=== PATIENT | male | born 1950 | race Caucasian/White ===

== ENCOUNTER 2016-12-24 08:26 | Inpatient (IN) | payer BC ==
[~2016-12-24] VITALS: Ht 190.5 cm; Wt 98.7 kg
[2016-12-24] MEDS ORDERED: ASPIRIN 81 MG CHEW PO STA (08:41)
[2016-12-24] MEDS ORDERED: IBUP-1459 PO (08:45)
--- NOTE | 2016-12-24 09:00 | DIAGNOSTIC IMAGING REPORT ---
CHEST ONE VIEW PORTABLE CLINICAL HISTORY: CHEST PAIN dyspnea COMPARISON STUDY: None FINDINGS: Parenchymal infiltrate left base. Mild prominence pulmonary vasculature. Heart top limits normal in terms of size. Right hemidiaphragm is smooth. IMPRESSION: Parenchymal infiltrate left base possibly combined with a small left effusion. Electronically signed by: Huy Humphrey M.D. 12/24/2016 8:58 AM Dictated Date/Time: 12/24/2016 8:58 AM
[2016-12-24 09:04] LABS: BASO % 0.2 %; BASO ABS # 0.02 K/uL (0-0.2); COMPLETE YES; HEMATOCRIT 40.1 % (42-52); IG% 0.2 %; LYMPH % 10.1 %; LYMPH ABS # 1.03 K/uL (1.2-3.4); MEAN CELL VOLUME 89.3 fL (80-100); MEAN CORPUSCULAR HEMOGLOBIN 31.8 pg (25-34); MEAN CORPUSCULAR HGB CONC 35.7 g/dl (32-36); MEAN PLATELET VOLUME 9.9 fL (7.4-10.4); MONO % 10.1 %; NEUT % 78.4 %; PLATELET COUNT 216 K/uL (130-400); RED BLOOD COUNT 4.49 M/uL (4.7-6.1)
--- NOTE | 2016-12-24 09:05 | EMERGENCY ROOM VISIT NOTE ---
History Report prepared by Elsi: Debbie Casanova Under the Supervision of: Maxwell LucasO. First contact with patient: 08:34 Chief Complaint: CHEST PAIN Stated Complaint: CP FROM LT SIDE WHEN BREATHING History of Present Illness The patient is a 66 year old male who presents to the Emergency Room with complaints of persistent left sided chest pain that began last evening. He currently rates his discomfort as a 4/10 in severity. The patient states that yesterday he started with the left sided chest pain, and states that it would increase with breathing. He states that his pain increased last evening and could not lay flat to sleep, stating that he slept upright all night. The patient states that he took ibuprofen last evening. He states that when he woke and his pain has lessened. The patient states that since his pain was still there this morning and he started with nausea, vomiting, and diarrhea, he consulted his PCP's office. He states that the nurse instructed him to come to the emergency department for further work up. The patient states that recently he traveled to [place], but denies any history of PEs or DVTs. He denies any personal history of MIs, but states that his father from an [place]. The patient notes a cough and increased phlegm production. He denies any fever or abdominal pain. The patient notes a history of [place] Palsy. He denies any tobacco use but states that he uses alcohol daily. Source of History: patient Onset: last evening Position: chest (left) Symptom Intensity: 4/10 Timing: other (persistent) Associated Symptoms: + cough, + diarrhea, + nausea, + vomiting, No abdominal pain, No fevers Review of Systems See HPI for pertinent positives & negatives. A total of 10 systems reviewed and were otherwise negative. 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 Family History Heart disease Social History Smokeless Tobacco Use: Yes Alcohol Use: occasionally Marital Status: single Occupation Status: employed Current/Historical Medications Scheduled Ibuprofen (Motrin), 400 MG PO TID Allergies Coded Allergies: NUTS (Unverified Allergy, Unknown, anaphylaxis, 12/24/16) Physical Exam Vital Signs Date Time Temp Pulse Resp B/P Pulse Ox O2 Delivery O2 Flow Rate FiO2 12/24/16 10:35 69 18 128/84 97 Room Air 12/24/16 10:18 36.7 64 21 123/75 94 Room Air 12/24/16 09:25 72 18 128/74 94 Room Air 12/24/16 08:39 81 12/24/16 08:35 36.6 82 18 150/90 95 Room Air 12/24/16 08:35 94 Room Air 12/24/16 08:35 94 Room Air Physical Exam GENERAL: Patient is awake, alert, and in no acute distress. Patient is resting comfortably and showing no signs of anxiety EYES: The conjunctivae are clear. The pupils are round and reactive. EARS, NOSE, MOUTH AND THROAT: The nose is without any evidence of any deformity. Mucous membranes are moist tongue is midline NECK: The neck is nontender and supple. RESPIRATORY: Diminished in left base. Rales in left base. No tachypnea or respiratory distress noted. CARDIOVASCULAR: Regular rate and rhythm noted there no murmurs rubs or gallops normal S1 normal S2 GASTROINTESTINAL: The abdomen is soft. Bowel sounds are present in all quadrants. Abdomen is nontender MUSCULOSKELETAL/EXTREMITIES: There is no evidence of gross deformity full range of motion is noted in the hips and shoulders SKIN: There is no obvious evidence of any rash. There are no petechiae, pallor or cyanosis noted. NEUROLOGIC: Patient is awake alert and oriented x3 strength is symmetric patellar reflexes are 2+ bilaterally. 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 Medical Decision & Procedures ER Provider Diagnostic Interpretation: Radiology results as stated below per my review and radiologist interpretation: CHEST ONE VIEW PORTABLE CLINICAL HISTORY: CHEST PAIN dyspnea COMPARISON STUDY: None FINDINGS: Parenchymal infiltrate left base. Mild prominence pulmonary vasculature. Heart top limits normal in terms of size. Right hemidiaphragm is smooth. IMPRESSION: Parenchymal infiltrate left base possibly combined with a small left effusion. Electronically signed by: Huy Humphrey M.D. 12/24/2016 8:58 AM Dictated Date/Time: 12/24/2016 8:58 AM CHEST CTA for PULMONARY ARTERIES CT DOSE: 340.79 mGy.cm HISTORY: Chest pain dyspnea TECHNIQUE: Multiaxial CT images of the chest were performed following the intravenous administration of contrast to evaluate the pulmonary arteries. Maximal intensity projection images were also obtained. COMPARISON STUDY: None. FINDINGS: Study is positive for pulmonary embolus involving the third order vessel of the left lower lobe. All remaining pulmonary vasculature enhances peripherally. There is no evidence for major central pulmonary embolus. Thoracic aorta is normal in course and caliber. There is a small left effusion. There are infiltrative changes left lung base. There is no significant hilar or mediastinal adenopathy. The may be minimal early parenchymal infiltrate right base. IMPRESSION: 1. Study is positive for a small pulmonary embolus left lung base. 2. Left and to a lesser extent right basilar parenchymal infiltrative change with a small left effusion. Electronically signed by: Huy Humphrey M.D. 12/24/2016 9:49 AM Dictated Date/Time: 12/24/2016 9:46 AM Laboratory Results 12/24/16 08:54 Red Blood Count 4.49, Mean Corpuscular Volume 89.3, Mean Corpuscular Hemoglobin 31.8, Mean Corpuscular Hemoglobin Concent 35.7, Mean Platelet Volume 9.9, Neutrophils (%) (Auto) 78.4, Lymphocytes (%) (Auto) 10.1, Monocytes (%) (Auto) 10.1, Eosinophils (%) (Auto) 1.0, Basophils (%) (Auto) 0.2, Neutrophils # (Auto ) 8.00, Lymphocytes # (Auto) 1.03, Monocytes # (Auto) 1.03, Eosinophils # (Auto ) 0.10, Basophils # (Auto) 0.02 12/24/16 08:54 Test 12/24/16 08:54 12/24/16 08:57 12/24/16 10:15 White Blood Count 10.20 K/uL (4.8-10.8) Red Blood Count 4.49 M/uL (4.7-6.1) Hemoglobin 14.3 g/dL (14.0-18.0) Hematocrit 40.1 % (42-52) Mean Corpuscular Volume 89.3 fL (80-100) Mean Corpuscular Hemoglobin 31.8 pg (25-34) Mean Corpuscular Hemoglobin Concent 35.7 g/dl (32-36) Platelet Count 216 K/uL (130-400) Mean Platelet Volume 9.9 fL (7.4-10.4) Neutrophils (%) (Auto) 78.4 % Lymphocytes (%) (Auto) 10.1 % Monocytes (%) (Auto) 10.1 % Eosinophils (%) (Auto) 1.0 % Basophils (%) (Auto) 0.2 % Neutrophils # (Auto) 8.00 K/uL (1.4-6.5) Lymphocytes # (Auto) 1.03 K/uL (1.2-3.4) Monocytes # (Auto) 1.03 K/uL (0.11-0.59) Eosinophils # (Auto) 0.10 K/uL (0-0.5) Basophils # (Auto) 0.02 K/uL (0-0.2) RDW Standard Deviation 43.4 fL (36.4-46.3) RDW Coefficient of Variation 13.2 % (11.5-14.5) Immature Granulocyte % (Auto) 0.2 % Immature Granulocyte # (Auto) 0.02 K/uL (0.00-0.02) Prothrombin Time 10.5 SECONDS (9.0-12.0) Prothromb Time International Ratio 1.0 (0.9-1.1) Activated Partial Thromboplast Time 28.2 SECONDS (21.0-31.0) Partial Thromboplastin Ratio 1.1 Anion Gap 11.0 mmol/L (3-11) Est Creatinine Clear Calc Drug Dose 86.8 ml/min Estimated GFR () 90.5 Estimated GFR (Non- 78.1 BUN/Creatinine Ratio 22.8 (10-20) Calcium Level 8.8 mg/dl (8.5-10.1) Total Bilirubin 0.7 mg/dl (0.2-1) Direct Bilirubin 0.2 mg/dl (0-0.2) Aspartate Amino Transf (AST/SGOT) 17 U/L (15-37) Alanine Aminotransferase (ALT/SGPT) 29 U/L (12-78) Alkaline Phosphatase 71 U/L (45-117) Total Creatine Kinase 70 U/L (39-308) Creatine Kinase MB 0.5 ng/ml (0.5-3.6) Creatine Kinase MB Ratio 0.7 (0-3.0) Total Protein 7.1 gm/dl (6.4-8.2) Albumin 3.4 gm/dl (3.4-5.0) Lipase 144 U/L (73-393) Hepatitis C Antibody Screen NEG (NEG) Bedside D-Dimer > 450 ng/mlFEU (0-450) Bedside Troponin I 0.000 ng/ml (0-0.045) Medications Administered Medications (Trade) Dose Ordered Sig/Sushma Route Start Time Stop Time Status Last Admin Dose Admin Aspirin (Aspirin Chew) 324 mg NOW STAT PO 12/24/16 08:41 12/24/16 08:42 DC 12/24/16 09:03 324 MG ECG Indication: chest pain Rate (beats per minute): 75 Rhythm: normal sinus Findings: no acute ischemic change, no ectopy, other (no acute ST segment abnormalities) Comparison ECG Date: no prior available ED Course 0837: The patient was evaluated in room B4B. A complete history and physical examination were performed. 0841: Ordered Aspirin 324 mg PO. 0957: I discussed the patients case with KEVIN Perez. He is going to evaluate the patient for further treatment. 0958: Ordered Heparin Sodium Dextrose 1 ea NA. 1010: I reevaluated the patient and he is resting comfortably. I discussed the exam findings with him and I discussed the treatment plan. He verbalized complete understanding and agreement. He is going to be evaluated for further treatment. 1015: Ordered Heparin Sodium/Dextrose 1 ea NA. Medical Decision Differential diagnosis: Etiologies such as cardiac ischemia, aortic dissection, pulmonary embolism, pneumonia, pneumothorax, musculoskeletal, infections, pericarditis, myocarditis , esophageal rupture, gastrointestinal, as well as others were entertained. Nursing notes reviewed. The patient is a 66-year-old male who presented to the emergency department for an evaluation of left-sided chest pain. The patient had pleuritic chest pain. He did not have significant tachycardia or hypoxia but had a recent history of a flight last week which was prolonged with a long layover. The patient did not have any physical exam findings consistent with DVT. D-dimer is positive. The patient received aspirin in the emergency department. He will also started on heparin after CT revealed signs of left-sided pulmonary embolus. He also had signs of possible pulmonary infiltrate. Blood cultures were obtained. I discussed the patient's laboratory and radiographic studies with him. I also discussed his case with the on-call [facility] hospitalist. At this time they 've recommended holding antibiotics. It is more likely that this represents thromboembolic disease. The patient does not have complaints of cough and does not have a fever. He may require antibiotics but I will defer this until after he is been evaluated by the [facility] team. The patient was reevaluated multiple times. Consults Time Called: [phone] Consulting Physician: JOSEFINA Perez Returned Call: [phone] I discussed the patients case with JOSEFINA Perez. He is going to evaluate the patient for further treatment. Impression Primary Impression: Pulmonary embolism on left Additional Impression: Pleuritic chest pain Critical Care I have personally spent greater than 45 minutes of critical care time in the direct management of this patient. This includes bedside care, interpretation of diagnostic studies, and testing, discussion with consultants, patient, and family members, and other required patient management activities. This 45 minutes is in excess of all separately billable procedures. Scribe Attestation The scribe's documentation has been prepared under my direction and personally reviewed by me in its entirety. I confirm that the note above accurately reflects all work, treatment, procedures, and medical decision making performed by me. Departure Information Dispostion Being Evaluated By Hospitalist Referrals Johnathan Wadsworth M.D. (PCP) Problem Qualifiers
[2016-12-24 09:11] LABS: PARTIAL THROMBOPLASTIN RATIO 1.1; PROTHROMBIN TIME (PATIENT) 10.5 SECONDS (9.0-12.0)
[2016-12-24 09:21] LABS: BUN/CREATININE RATIO 22.8 (10-20); CALCIUM 8.8 mg/dl (8.5-10.1); POTASSIUM 3.8 mmol/L (3.5-5.1)
[2016-12-24 09:26] LABS: CKMB/CK RATIO 0.7 (0-3.0)
[2016-12-24] MEDS ORDERED: OPTIRAY 320 IV PRN (09:30)
--- NOTE | 2016-12-24 09:50 | DIAGNOSTIC IMAGING REPORT ---
CHEST CTA for PULMONARY ARTERIES CT DOSE: 340.79 mGy.cm HISTORY: Chest pain dyspnea TECHNIQUE: Multiaxial CT images of the chest were performed following the intravenous administration of contrast to evaluate the pulmonary arteries. Maximal intensity projection images were also obtained. COMPARISON STUDY: None. FINDINGS: Study is positive for pulmonary embolus involving the third order vessel of the left lower lobe. All remaining pulmonary vasculature enhances peripherally. There is no evidence for major central pulmonary embolus. Thoracic aorta is normal in course and caliber. There is a small left effusion. There are infiltrative changes left lung base. There is no significant hilar or mediastinal adenopathy. The may be minimal early parenchymal infiltrate right base. IMPRESSION: 1. Study is positive for a small pulmonary embolus left lung base. 2. Left and to a lesser extent right basilar parenchymal infiltrative change with a small left effusion. Electronically signed by: Huy Humphrey M.D. 12/24/2016 9:49 AM Dictated Date/Time: 12/24/2016 9:46 AM
[2016-12-24 10:18] VITALS: BP 123/75; PULSE 64; TEMP 36.7; O2SAT 94; Ht 190.5 cm; Wt 98.7 kg
[2016-12-24] MEDS ORDERED: ACETAMINOPHEN 325 MG TAB PO PRN (10:30)
[2016-12-24] MEDS ORDERED: ONDANSETRON INJ 2 MG/ML 2 ML VIAL IV PRN (10:30)
[2016-12-24] MEDS ORDERED: NITROGLYCERIN 0.4 MG SL PER TAB CHARGE SL PRN (10:30)
[2016-12-24] MEDS ORDERED: MAGNESIUM HYDROXIDE SUSP 30 ML UDC PO PRN (10:30)
[2016-12-24] MEDS ORDERED: ALUMINUM/MAGNESIUM/SIMETH (MAALOX MAX) 30 ML UDC PO PRN (10:30)
[2016-12-24] MEDS ORDERED: POLYETHYLENE (MIRALAX) 17 GM PACK PO PRN (10:30)
[2016-12-24] MEDS ORDERED: HEPARIN SOD 5000 UNIT/0.5 ML CARP ONE (10:48)
[2016-12-24] MEDS ORDERED: HEPARIN 25000 UNIT/500 ML D5W ONE (10:48)
--- NOTE | 2016-12-24 10:59 | History and Physical ---
History & Physical Date & Time of Service: Dec 24, 2016 at 10:35 Chief Complaint: Cp From Lt Side When Breathing Primary Care Physician: Johnathan Wadsworth M.D. History of Present Illness Source: patient Patient is a pleasant 66 y/o male, with no significant PMHx, who presented to the ED because of left sided CP w/ associated nausea and vomiting. Left sided CP begin on 12/23 evening. CP is worsened with breathing and lying flat. He took Ibuprofen last evening with minimal relief in symptoms. This morning, patient started with nausea and vomiting. Patient also admits to a chronic cough with minimal phlegm production. Denies any discoloration of production. The patient recently travelled from [place]. 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 He denies any history of PE/DVT. He denies any cardiac history. Patient states he use to take ASA daily as a preventive measures, but had to stop due to frequent nose bleeds. Patient denies any fever, chills, sweats, lightheadedness, dizziness, vision changes, palpitations, edema, SOB, wheezing, abdominal pain, diarrhea, urinary symptoms, melena, numbness/tingling, weakness , muscle/joint pain, anxiety/depression, active bleeding, or new skin discoloration/changes. Past Medical/Surgical History Medical Problems: 1. Muhammad's palsy Family History Heart disease Social History Smoking Status: Never Smoker Alcohol Use: heavy (daily ) Marital Status: single Occupational Status: employed Allergies Coded Allergies: NUTS (Unverified Allergy, Unknown, anaphylaxis, 12/24/16) Home Medications Scheduled Ibuprofen (Motrin), 400 MG PO TID Physical Exam Vital Signs Date Time Temp Pulse Resp B/P Pulse Ox O2 Delivery O2 Flow Rate FiO2 12/24/16 09:25 72 18 128/74 94 Room Air 12/24/16 08:39 81 12/24/16 08:35 36.6 82 18 150/90 95 Room Air 12/24/16 08:35 94 Room Air 12/24/16 08:35 94 Room Air General Appearance: WD/WN, no apparent distress Head: normocephalic, atraumatic Eyes: PERRL ENT: hearing grossly normal Neck: supple Respiratory/Chest: lungs clear, no respiratory distress, no accessory muscle use Cardiovascular: regular rate, rhythm, normal peripheral pulses Abdomen/GI: normal bowel sounds, non tender, soft Back: normal inspection Extremities/Musculoskelatal: no calf tenderness, no pedal edema Neurologic/Psych: alert, normal reflexes, oriented x 3, + facial droop (chronic , hx of muhammad's palsy ) Skin: normal color, warm/dry, no rash Diagnostics Laboratory Results Results Past 24 Hours Test 12/24/16 08:54 12/24/16 08:57 12/24/16 10:15 Range/Units White Blood Count 10.20 4.8-10.8 K/uL Red Blood Count 4.49 4.7-6.1 M/uL Hemoglobin 14.3 14.0-18.0 g/dL Hematocrit 40.1 42-52 % Mean Corpuscular Volume 89.3 80-100 fL Mean Corpuscular Hemoglobin 31.8 25-34 pg Mean Corpuscular Hemoglobin Concent 35.7 32-36 g/dl Platelet Count 216 130-400 K/uL Mean Platelet Volume 9.9 7.4-10.4 fL Neutrophils (%) (Auto) 78.4 % Lymphocytes (%) (Auto) 10.1 % Monocytes (%) (Auto) 10.1 % Eosinophils (%) (Auto) 1.0 % Basophils (%) (Auto) 0.2 % Neutrophils # (Auto) 8.00 1.4-6.5 K/uL Lymphocytes # (Auto) 1.03 1.2-3.4 K/uL Monocytes # (Auto) 1.03 0.11-0.59 K/uL Eosinophils # (Auto) 0.10 0-0.5 K/uL Basophils # (Auto) 0.02 0-0.2 K/uL RDW Standard Deviation 43.4 36.4-46.3 fL RDW Coefficient of Variation 13.2 11.5-14.5 % Immature Granulocyte % (Auto) 0.2 % Immature Granulocyte # (Auto) 0.02 0.00-0.02 K/uL Prothrombin Time 10.5 9.0-12.0 SECONDS Prothromb Time International Ratio 1.0 0.9-1.1 Activated Partial Thromboplast Time 28.2 21.0-31.0 SECONDS Partial Thromboplastin Ratio 1.1 Sodium Level 139 136-145 mmol/L Potassium Level 3.8 3.5-5.1 mmol/L Chloride Level 106 98-107 mmol/L Carbon Dioxide Level 22 21-32 mmol/L Anion Gap 11.0 3-11 mmol/L Blood Urea Nitrogen 23 7-18 mg/dl Creatinine 1.00 0.60-1.40 mg/dl Est Creatinine Clear Calc Drug Dose 86.8 ml/min Estimated GFR () 90.5 Estimated GFR (Non- 78.1 BUN/Creatinine Ratio 22.8 10-20 Random Glucose 155 70-99 mg/dl Calcium Level 8.8 8.5-10.1 mg/dl Total Bilirubin 0.7 0.2-1 mg/dl Direct Bilirubin 0.2 0-0.2 mg/dl Aspartate Amino Transf (AST/SGOT) 17 15-37 U/L Alanine Aminotransferase (ALT/SGPT) 29 12-78 U/L Alkaline Phosphatase 71 45-117 U/L Total Creatine Kinase 70 39-308 U/L Creatine Kinase MB 0.5 0.5-3.6 ng/ml Creatine Kinase MB Ratio 0.7 0-3.0 Total Protein 7.1 6.4-8.2 gm/dl Albumin 3.4 3.4-5.0 gm/dl Lipase 144 73-393 U/L Bedside D-Dimer > 450 0-450 ng/mlFEU Bedside Troponin I 0.000 0-0.045 ng/ml Microbiology Results 12/24/16 Blood Culture, Received Pending 12/24/16 Blood Culture, Received Pending Diagnostic Radiology CHEST ONE VIEW PORTABLE CLINICAL HISTORY: CHEST PAIN dyspnea COMPARISON STUDY: None FINDINGS: Parenchymal infiltrate left base. Mild prominence pulmonary vasculature. Heart top limits normal in terms of size. Right hemidiaphragm is smooth. IMPRESSION: Parenchymal infiltrate left base possibly combined with a small left effusion. Electronically signed by: Huy Humphrey M.D. 12/24/2016 8:58 AM Dictated Date/Time: 12/24/2016 8:58 AM The status of this report is Signed. Draft = Not yet reviewed or approved by Radiologist. Signed = Reviewed and approved by Radiologist. CHEST CTA for PULMONARY ARTERIES CT DOSE: 340.79 mGy.cm HISTORY: Chest pain dyspnea TECHNIQUE: Multiaxial CT images of the chest were performed following the intravenous administration of contrast to evaluate the pulmonary arteries. Maximal intensity projection images were also obtained. COMPARISON STUDY: None. FINDINGS: Study is positive for pulmonary embolus involving the third order vessel of the left lower lobe. All remaining pulmonary vasculature enhances peripherally. There is no evidence for major central pulmonary embolus. Thoracic aorta is normal in course and caliber. There is a small left effusion. There are infiltrative changes left lung base. There is no significant hilar or mediastinal adenopathy. The may be minimal early parenchymal infiltrate right base. IMPRESSION: 1. Study is positive for a small pulmonary embolus left lung base. 2. Left and to a lesser extent right basilar parenchymal infiltrative change with a small left effusion. Electronically signed by: Huy Humphrey M.D. 12/24/2016 9:49 AM Dictated Date/Time: 12/24/2016 9:46 AM The status of this report is Signed. Draft = Not yet reviewed or approved by Radiologist. Signed = Reviewed and approved by Radiologist. EKG KIT KNIGHT ID:[id number] 24-DEC-2016 08:35:55 [facility] Normal sinus rhythm Possible Left atrial enlargement Nonspecific ST and T wave abnormality Abnormal ECG No previous ECGs available 25mm/s 10mm/mV 150Hz 8.0 SP2 12SL 241 HUSSEIN: 9 Referred by: Unconfirmed Vent. rate 75 BPM ND interval 180 ms QRS duration 102 ms QT/QTc 360/402 ms P-R-T axes 47 26 64 1950 (66 yr) Male Room: Loc:15 [employer] Compensation Magistrate:KAPIL Galeas ind: Impression Assessment and Plan 66 y/o male, with no significant PMHx, who presented to the ED because of left sided CP w/ associated nausea and vomiting. Left lung base PE: - Admit tele for cardiac monitoring - Trend cardiac enzymes - IV standard dose Heparin w/ bolus--> if remains hemodynamically stable, will discuss about oral anticoagulation tomorrow - Bilateral lower extremity U/S - Hypercoagulable workup pending - Follow CBC and PRP ?PNA w/ infiltrates on CXR/CTA: - No abx at this time--> no s/s of infections; no fever/chills, worsening cough (pt has chronic cough), no WBC. Continue to monitor for s/s of infection/need for abx treatment - Blood cultures pending GI Prophylaxis: Maalox PRN, IV Zofran PRN, Colace and/or Milk of Mag PRN DVT prophylaxis: Heparin Code Status: LEVEL I, FULL Level of Care Telemetry Resuscitation Status FULL RESUSCITATION VTE Prophylaxis VTE Risk Assessment Done? Y/N: Yes Risk Level: High Given or contraindicated: Unfractionated heparin SQ
[2016-12-24] MEDS ORDERED: HEPARIN 25,000 UNIT/500ML D5W 500 ML IV PRN (11:30)
[2016-12-24] MEDS ORDERED: HEPARIN IV BOLUS 5,000 UNIT in SYRINGE 0 ML IV ONE (11:30)
[2016-12-24 11:55] VITALS: O2SAT 94
[2016-12-24] MEDS ORDERED: WARFARIN SOD 5 MG TAB PO ONE (12:45)
[2016-12-24 15:22] VITALS: BP 130/79; PULSE 71; TEMP 36.9; O2SAT 92
[2016-12-24] MEDS ORDERED: WARFARIN SOD 5 MG TAB PO SCH (16:00)
[2016-12-24] MEDS ORDERED: PNEUMOCOCCAL POLYSACCHARIDES 25 MCG/0.5 ML VIAL/SYR IM. ONE (16:00)
[2016-12-24] MEDS ORDERED: PNEUMOCOCCAL ADMINISTRATION CHARGE ONE (16:00)
[2016-12-24 17:57] LABS: PARTIAL THROMBOPLASTIN RATIO 2.9
[2016-12-24 19:28] VITALS: BP 112/74; PULSE 65; TEMP 36.7; O2SAT 95
[2016-12-24] MEDS: ENOXAPARIN 100 MG/1ML SYR SQ SCH (19:44)
--- NOTE | 2016-12-24 21:47 | DIAGNOSTIC IMAGING REPORT ---
BILATERAL LOWER EXTREMITY VENOUS DOPPLER CLINICAL HISTORY: Chest pain. Pulmonary emboli. COMPARISON STUDY: No previous studies for comparison. TECHNIQUE: Sonography of the deep venous system of the bilateral lower extremities was performed. Compression and augmentation were evaluated. FINDINGS: The bilateral common femoral, superficial femoral and popliteal veins were compressible. Augmentation was normal. Flow was shown within the deep calf vessels. IMPRESSION: No evidence of deep venous thrombus within the bilateral lower extremities. Electronically signed by: Satnam Sanchez M.D. 12/24/2016 9:46 PM Dictated Date/Time: 12/24/2016 9:45 PM
[2016-12-24 23:41] VITALS: BP 107/68; PULSE 61; TEMP 36.7; O2SAT 94
[2016-12-25 03:47] VITALS: BP 112/70; PULSE 62; TEMP 36.6; O2SAT 95
[2016-12-25 05:40] LABS: HEMATOCRIT 39.1 % (42-52); MEAN CELL VOLUME 87.9 fL (80-100); MEAN CORPUSCULAR HEMOGLOBIN 31.2 pg (25-34); MEAN CORPUSCULAR HGB CONC 35.5 g/dl (32-36); MEAN PLATELET VOLUME 9.5 fL (7.4-10.4); PLATELET COUNT 223 K/uL (130-400); RED BLOOD COUNT 4.45 M/uL (4.7-6.1)
[2016-12-25 05:52] LABS: PARTIAL THROMBOPLASTIN RATIO 1.3; PROTHROMBIN TIME (PATIENT) 10.7 SECONDS (9.0-12.0)
[2016-12-25 06:20] LABS: BUN/CREATININE RATIO 17.6 (10-20); CALCIUM 8.7 mg/dl (8.5-10.1); CREATININE 0.85 mg/dl (0.60-1.40); POTASSIUM 3.8 mmol/L (3.5-5.1)
[2016-12-25 08:08] VITALS: BP 116/73; PULSE 60; TEMP 36.4; O2SAT 91
[2016-12-25] MEDS: ENOXAPARIN 100 MG/1ML SYR SQ SCH (08:22)
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
[2016-12-25] MEDS ORDERED: CMD5 PO (09:23)
[2016-12-25] MEDS ORDERED: LVNIS100 SQ (09:23)
--- NOTE | 2016-12-25 09:33 | Discharge Instructions ---
Discharge Instructions Date of Service Dec 25, 2016. Admission Reason for Admission: Pulmonary Embolism On Left Discharge Discharge Diagnosis / Problem: Pulmonary embolism Discharge Goals Goal(s): Decrease discomfort, Learn about illness, Diagnostic testing, Therapeutic intervention, Prevent Disease Progression Activity Recommendations Activity Limitations: resume your previous activity Instructions / Follow-Up Instructions / Follow-Up New medications: 1. Lovenox 100 mg injections twice per day. You will need at least 5 days of injections to overlap with Coumadin. Please continue these injections until further instructed by your PCP. FIRST INJECTION WILL BE TONIGHT (12/24) 2. Coumadin 5 mg by mouth once daily. BEGIN MEDICATION TODAY (12/24) You may resume all other regular home medications as prescribed to you You have been given a script to get your INR (blood level to determine how thin your blood is) check on 12/26. Results will be forwarded to your PCP. Please follow their further Lovenox and Coumadin instructions. [facility] Information: [facility] [address] [place] [address] Please follow-up with your PCP within 5-7 days Please follow-up/keep all of your subspecialty appointments Medication Instructions: * Warfarin is a medicine prescribed to prevent blood clots * Warfarin will thin your blood and help prevent new clots * Take your medications exactly as directed * Never skip a dose. Never take a double dose. If you miss a dose, take it as soon as you remember * It is important for your doctor to monitor your prothrombin time (PT). This is a lab test * Keep your appointment for lab tests Risk of Adverse Drug Reactions and Interactions: * Warfarin increases your risk of bleeding * The food you eat and other medications you take can affect how Warfarin works in your body * Ask your doctor about daily aspirin therapy * It is very important to talk with your doctor about all of the other medicines, antibiotics, vitamins or herbal products that you are taking * All of your medication must be approved by your doctor, including new medicines, as well as medicines you have taken before you started taking Warfarin Diet: * In order for Warfarin to work properly, it is important to keep your intake of Vitamin K as consistent as possible * You should avoid any sudden change in Vitamin K intake * Report any significant changes in your diet or weight to your doctor Call your Doctor if you experience any of the following: * Swelling or Pain in your leg * Sudden, continuous pain deep in a muscle * Pain that worsens when you are active or when you stand still for a long time * Chest Pain * Sudden Shortness of Breath * Rapid or pounding heart beat * Fainting * Dizziness * Cough with blood or bloody sputum * Sweating more than normal * Bruises * heavy or uncontrolled bleeding * Blood in your urine, stool or vomit * Black or tarry stools Caring for Your Self at Home: * Avoid sitting, standing or lying down for long periods without moving your legs and feet * When traveling by car, stop to get out and move around at least once every 3 hours * On long airplane, train or bus rides, get up and move around when possible * If you can't get up, wiggle your toes and tighten your calves to keep your blood moving Follow Up: * It is important for you to keep your follow up appointments with your medical provider. Current Hospital Diet Patient's current hospital diet: Regular Diet Discharge Diet Recommended Diet: Regular Diet Procedures Procedures Performed: 1. Chest x-ray 2. Chest CTA 3. Bilateral lower extremity venous ultrasound Pending Studies Studies pending at discharge: yes List of pending studies: 1. Hypercoagulable workup 2. Blood cultures Laboratory Results Last 24 Hours Test 12/24/16 10:15 12/24/16 17:00 12/24/16 17:30 12/25/16 00:54 Creatine Kinase MB Ratio Activated Partial Thromboplast Time 75.3 SECONDS Partial Thromboplastin Ratio 2.9 Creatine Kinase MB < 0.5 ng/ml < 0.5 ng/ml Troponin I < 0.015 ng/ml < 0.015 ng/ml Test 12/25/16 01:00 12/25/16 05:14 Creatine Kinase MB Ratio White Blood Count 7.00 K/uL Red Blood Count 4.45 M/uL Hemoglobin 13.9 g/dL Hematocrit 39.1 % Mean Corpuscular Volume 87.9 fL Mean Corpuscular Hemoglobin 31.2 pg Mean Corpuscular Hemoglobin Concent 35.5 g/dl RDW Standard Deviation 42.3 fL RDW Coefficient of Variation 13.1 % Platelet Count 223 K/uL Mean Platelet Volume 9.5 fL Prothrombin Time 10.7 SECONDS Prothromb Time International Ratio 1.0 Activated Partial Thromboplast Time 32.6 SECONDS Partial Thromboplastin Ratio 1.3 Sodium Level 141 mmol/L Potassium Level 3.8 mmol/L Chloride Level 108 mmol/L Carbon Dioxide Level 24 mmol/L Anion Gap 9.0 mmol/L Blood Urea Nitrogen 15 mg/dl Creatinine 0.85 mg/dl Est Creatinine Clear Calc Drug Dose 102.2 ml/min Estimated GFR () 105.2 Estimated GFR (Non- 90.8 BUN/Creatinine Ratio 17.6 Random Glucose 94 mg/dl Calcium Level 8.7 mg/dl Medical Emergencies . Who to Call and When: Medical Emergencies: If at any time you feel your situation is an emergency, please call 911 immediately. . Non-Emergent Contact Non-Emergency issues call your: Primary Care Provider Call Non-Emergent contact if: you have a fever, your pain is unusual for you, your pain is concerning you, you have any medication questions . . "Provider Documentation" section prepared by Maryan James. VTE Core Measure Inpt VTE Proph given/why not?: Enoxaparin (Lovenox)SQ, Unfractionated heparin SQ, Warfarin (Coumadin)
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
[2016-12-25 10:03] VITALS: BP 116/73; PULSE 60; TEMP 36.4; O2SAT 91
[2016-12-25] MEDS ORDERED: NURSING VERBAL MED ORDER ONE (10:45)
[2016-12-25] MEDS ORDERED: ENOXAPARIN 100 MG/1ML SYR SQ SCH (19:00)
[2016-12-27 12:31] LABS: ANTITHROMBINIII ACTIVITY** 97 % activity (80-120); B2 GLYCOPROTEIN IGA <9 SAU (<=20); B2 GLYCOPROTEIN IGG <9 SGU (<=20); B2 GLYCOPROTEIN IGM <9 SMU (<=20); LUPUS ANTICOAGULANT** TC36573X Weak Positive (Negative); PROTEIN C ACTIVITY** TC 1777X 126 % (70-180); PROTEIN S ACT(FUNCT)**1779X 89 % (70-150)
[2016-12-27] MEDS ORDERED: APIX1TAB3 PO (14:23)
[2017-03-28] MEDS ORDERED: FIBER PO (10:11)
[2017-03-28] MEDS ORDERED: CHOL400T PO (10:11)
[2017-03-28] MEDS ORDERED: APIX1TAB3 PO (10:11)
== END 2016-12-25 11:20 | disposition home or self-care (01) | DRG 176 ==
LOC: ENRESERVDT → ENRESERVTM → C.EDB 08:30 → C.2T 10:35
PROVIDERS: ADMIT Hospitalist; ATTEND Hospitalist
DX: I26.99 Other pulmonary embolism without acute cor pulmonale (principal); J90 Pleural effusion, not elsewhere classified; R11.2 Nausea with vomiting, unspecified; R05 Cough; R07.89 Other chest pain; Z79.1 Long term (current) use of non-steroidal anti-inflammatories (NSAID)

== ENCOUNTER → 2016-12-26 | Outpatient (CLI) | payer BC ==
[~2016-12-26] MED LIST: APIX1TAB3 PO; CHOL400T PO; CMD5 PO; FIBER PO; IBUP-1459 PO; LVNIS100 SQ
[2016-12-26 09:44] LABS: PROTHROMBIN TIME (PATIENT) 11.2 SECONDS (9.0-12.0)
== END | disposition home or self-care (01) ==
LOC: C.LAB 08:26
PROVIDERS: ATTEND Internal Medicine
DX: I26.99 Other pulmonary embolism without acute cor pulmonale (principal)

== ENCOUNTER → 2018-01-16 | Outpatient (CLI) | payer OTHER ==
[~2018-01-16] MED LIST changes: -CMD5 PO; -IBUP-1459 PO; -LVNIS100 SQ
--- NOTE | 2018-01-16 14:04 | DIAGNOSTIC IMAGING REPORT ---
ABDOMEN ULTRASOUND FOR HERNIA CLINICAL HISTORY: K40.90 Inguinal hernia. Right inguinal pain. COMPARISON STUDY: None. FINDINGS: Small fat-containing reducible right inguinal hernia. No bowel or fluid within the hernia sac. No lymphadenopathy within the right groin. IMPRESSION: Small fat-containing reducible right inguinal hernia. Electronically signed by: Ashok Orozco M.D. 01/16/2018 2:03 PM Dictated Date/Time: 01/16/2018 1:50 PM
== END | disposition home or self-care (01) ==
LOC: C.ULTRBC 13:24
PROVIDERS: ATTEND Nurse Practitioner Adult Health
DX: K40.90 Unilateral inguinal hernia, without obstruction or gangrene, not specified as recurrent (principal)